=== PATIENT | female | born 1960 | race Caucasian/White ===

== ENCOUNTER 2024-12-23 09:34 | Day surgery (SDC) | payer BC ==
[2024-12-23] MEDS ORDERED: Lactated Ringers 1,000 ML IV ONE (09:35)
[2024-12-23] MEDS ORDERED: propofoL 500 MG/50 ML 50 ML ONE (10:02)
[2024-12-23] MEDS ORDERED: Lidocaine 1% 2 ML ONE (10:03)
[2024-12-23] MEDS: Pregabalin 25 MG Cap PO ONE (10:21)
[2024-12-23] MEDS: oxyCODONE ER 10 MG TAB.ER PO ONE (10:21)
[2024-12-23] MEDS ORDERED: fentaNYL 100 MCG/2 ML SDV ONE (10:27)
[2024-12-23] MEDS: Acetaminophen 325 MG Tab PO ONE (10:33)
[2024-12-23] MEDS ORDERED: Ondansetron 4 MG/2 ML SDV ONE (10:45)
[2024-12-23] MEDS ORDERED: dexmedeTOMIDine HCl 200 MCG/2 ML SDV ONE (10:45)
[2024-12-23] MEDS ORDERED: Phenylephrine 1% 10 MG/ML SDV ONE (10:45)
[2024-12-23] MEDS ORDERED: Ropivacaine 0.5% 5 MG/ML 30 ML SDV ONE (11:06)
[2024-12-23] MEDS ORDERED: ceFAZolin 2 GM Vial ONE (11:07)
[2024-12-23] MEDS ORDERED: Ketamine 200 MG/20 ML MDV ONE (11:10)
[2024-12-23] MEDS ORDERED: Propofol 200 MG/20 ML SDV ONE ×3 (11:19→12:04)
[2024-12-23] MEDS ORDERED: ePHEDrine 50 MG/ML SDV ONE (11:25)
[2024-12-23] MEDS: Morphine 8 MG, EPINEPHrine 0.3 MG, Cefuroxime 750 MG, Ketorolac 30 MG, Sodium Chloride ... PRN (11:54)
[2024-12-23] MEDS: VANCOmycin 1 GM SDV ONE (11:59)
[2024-12-23] MEDS: Tranexamic Acid 1,000 MG/10 ML Vial ONE (11:59)
[2024-12-23] MEDS: Bupivacaine 0.25% 10 ML SDV ONE (12:13)
[2024-12-23] MEDS: Triamcinolone Acetonide 40 MG/ML 1 ML SDV ONE (12:13)
[2024-12-23] MEDS ORDERED: HYDROmorphone 0.5 MG/0.5 ML Syringe IVPUSH PRN (12:41)
[2024-12-23] MEDS ORDERED: fentaNYL 100 MCG/2 ML SDV IVPUSH PRN (12:41)
[2024-12-23] MEDS ORDERED: Ondansetron 4 MG/2 ML SDV IVPUSH PRN (12:41)
[2024-12-23] MEDS: Ketorolac 30 MG/ML SDV IVPUSH ONE (13:08)
== END 2024-12-23 15:04 | disposition home or self-care (01) ==
LOC: JD.SDS 09:34
PROVIDERS: ATTEND Orthopaedic Surgery
DX: M17.0 Bilateral primary osteoarthritis of knee (principal); F41.9 Anxiety disorder, unspecified; F17.210 Nicotine dependence, cigarettes, uncomplicated; Z79.899 Other long term (current) drug therapy; Z88.5 Allergy status to narcotic agent
CPT/HCPCS: 0055T; 20610; 27447; 73560; 97116; 97161; 97530; A9270; C1713; C1776; J0171; J0665; J0690; J0697; J1885; J2003; J2272; J2371; J2405; J2704; J2795; J3010; J3301; J3490; J7120